=== PATIENT | female | born 1990 | race African-American/Black ===

== ENCOUNTER 2017-05-22 18:41 | Emergency (ER) | payer BC ==
[2017-05-22 18:51] VITALS: RESP 18
--- NOTE | 2017-05-22 19:16 | ED ---
General Adult HPI - General Chief complaint: Chest Pain Stated complaint: Chest,back and neck pain Time Seen by Provider: 05/22/17 18:56 Source: patient, RN notes reviewed Mode of arrival: ambulatory Limitations: no limitations - History of Present Illness Initial comments: 26-year-old female presents to the emergency department with a chief complaint of back neck and chest pain. Patient states this started about 4:00 today. She states the big deep breath seems to make it hurt worse. Since her radiated between the chest and back up to her neck. She states bending or twisting seems to make it worse. She denies any point tenderness she denies lifting or coughing or any injury to the area. Patient was concerned due to her continued discomfort so she thought that she should be evaluated. Patient denies any recent fever, chills, shortness of breath, abdominal pain, nausea vomiting, numbness or tingling, dysuria or hematuria, constipation or diarrhea, headaches or visual changes, or any other current symptoms. - Related Data Home Medications Medication Instructions Recorded Confirmed Levothyroxine Sodium [Synthroid] 25 mcg PO DAILY 07/03/15 05/22/17 Amoxicillin 500 mg PO TID 05/22/17 05/22/17 Allergies Allergy/AdvReac Type Severity Reaction Status Date / Time omeprazole [From Prilosec] Allergy Unknown Verified 05/22/17 19:09 omeprazole magnesium Allergy Unknown Verified 05/22/17 19:09 [From Prilosec] pantoprazole sodium Allergy Unknown Verified 05/22/17 19:09 [From Protonix] Review of Systems ROS Statement: Those systems with pertinent positive or pertinent negative responses have been documented in the HPI. ROS Other: All systems not noted in ROS Statement are negative. Past Medical History Past Medical History: Asthma Additional Past Medical History / Comment(s): irregular heart beat History of Any Multi-Drug Resistant Organisms: None Reported Past Surgical History: Section Past Anesthesia/Blood Transfusion Reactions: No Reported Reaction Past Psychological History: No Psychological Hx Reported Smoking Status: Never smoker Past Alcohol Use History: None Reported Past Drug Use History: None Reported - Past Family History Father Family Medical History: Hypertension Mother Family Medical History: Diabetes Mellitus, Hypertension General Exam - General Exam Comments Initial Comments: General: The patient is awake and alert, in no distress, and does not appear acutely ill. Eye: Pupils are equal, round and reactive to light, extra-ocular movements are intact; there is normal conjunctiva bilaterally. No signs of icterus. Ears, nose, mouth and throat: There are moist mucous membranes and no oral lesions. Neck: The neck is supple, there is no tenderness. Cardiovascular: There is a regular rate and rhythm. No murmur, rub or gallop is appreciated. Respiratory: Lungs are clear to auscultation, respirations are non-labored, breath sounds are equal. No wheezes, stridor, rales, or rhonchi. Gastrointestinal: Soft, non-distended, non-tender abdomen without masses or organomegaly noted. There is no rebound or guarding present. No CVA tenderness. Bowel sounds are unremarkable. Back: There is no tenderness to palpation in the midline. There is no obvious deformity. No rashes noted. Musculoskeletal: Normal ROM, no tenderness, There is no pedal edema. There is no calf tenderness or swelling. Sensation intact. Pulses equal bilaterally 2+. Neurological: CN II-XII intact, There are no obvious motor or sensory deficits. Coordination appears grossly intact. Speech is normal. Skin: Skin is warm and dry and no rashes or lesions are noted. Psychiatric: Cooperative, appropriate mood & affect, normal judgment. Limitations: no limitations Course Vital Signs 05/22/17 18:47 Temperature 97.1 F L Pulse Rate 76 Respiratory 18 Rate Blood Pressure 113/69 O2 Sat by Pulse 99 Oximetry EKG Findings - EKG Comments: EKG Findings:: normal sinus rhythm 73 bpm, normal axis, no atopy, no S-T depressions or elevations, Medical Decision Making - Medical Decision Making 18-year-old female presents for chest and back pain. This EKG is normal. Chest x-ray as well. Patient is perk negative. At this time we did discuss close follow-up with orthopedic discussed with the pain did discuss return parameters all questions. Patient stated that she understood and she is agreement plan. - Radiology Data Radiology results: report reviewed, image reviewed Disposition Clinical Impression: Costochondral chest pain Disposition: HOME SELF-CARE Condition: Stable Instructions: Costochondritis (ED) Additional Instructions: Please use medication as discussed. Please follow up with family doctor if symptoms have not improved over the next two days. Please return to the emergency room if your symptoms increase or worsen or for any other concerns. Referrals: Antonino Branch MD [Primary Care Provider] - 1-2 days Time of Disposition: 19:58
--- NOTE | 2017-05-22 19:56 | XR ---
EXAMINATION TYPE: XR chest 2V DATE OF EXAM: 05/22/2017 COMPARISON: NONE HISTORY: Cough TECHNIQUE: Frontal and lateral views of the chest are obtained. FINDINGS: Heart and mediastinum are normal. Lungs are clear. Diaphragm is normal. Bony thorax appear s normal. IMPRESSION: Normal chest
[2017-05-22] MEDS ORDERED: KETOROLAC 60 MG/2 ML VIAL IM STA (19:58)
[2017-05-22 20:36] VITALS: BP 115/71; PULSE 69; TEMP 97.9
== END 2017-05-22 20:36 | disposition home or self-care (01) ==
LOC: EC 18:41
DX: M94.0 Chondrocostal junction syndrome [Tietze] (principal); M54.9 Dorsalgia, unspecified; M54.2 Cervicalgia; Z79.899 Other long term (current) drug therapy; Z88.8 Allergy status to other drugs, medicaments and biological substances
CPT/HCPCS: 93005; 71020; 99285; 96372; J1885

== ENCOUNTER 2018-04-24 10:14 | Emergency (ER) | payer BC ==
[2018-04-24] MEDS ORDERED: SODIUM CHLORIDE 0.9% 500 ML 500 ML IV STA (10:41)
--- NOTE | 2018-04-24 10:48 | ED ---
Chest Pain HPI - General Chief Complaint: Chest Pain Stated Complaint: chest pain Source: patient, RN notes reviewed, old records reviewed Mode of arrival: ambulatory Limitations: no limitations - History of Present Illness Initial Comments: 27-year-old female patient presents to ED with 4 days of substernal chest pain. Patient states that the chest pain is waxing and waning, occurs primarily at rest. Patient states that the pain is not exacerbated by exertion. Patient states that this morning she woke up and had pain in her right shoulder as well , prompting her to come to the ER to seek treatment. Patient has a past history of chest pain, cardiac workups. Her patient she has had a negative stress test, negative echo. Patient states that she was diagnosed with an arrhythmia, but cannot confirm what it is, however she stated that there is no treatment necessary for it. Patient does complain of pleuritic chest pain with a deep breath. Patient denies recent travel, history of malignancy, history of oral contraceptive use, history of familial hypercoagulable disorder. Patient denies recent illness, abdominal pain, vomiting/diarrhea, fever chills, headache , changes in vision. Systemic: Pt denies fatigue, myalgia, fever/chills, rash. Pt denies weakness, night sweats, weight loss. Neuro: Pt denies headache, visual disturbances, syncope or pre-syncope. HEENT: Pt denies ocular discharge or irritation, otalgia, rhinorrhea, pharyngitis or notable lymphadenopathy. Cardiopulmonary: Pt denies SOB, heart palpitations, dyspnea on exertion. Abdominal/GI: Pt denies abdominal pain, n/v/d. : Pt denies dysuria, burning w/ urination, frequency/urgency. Denies new onset urinary or bowel incontinence. MSK: Pt denies myalgia, loss of strength or function in extremities. - Related Data Home Medications Medication Instructions Recorded Confirmed No Known Home Medications 04/24/18 04/24/18 Allergies Allergy/AdvReac Type Severity Reaction Status Date / Time omeprazole [From Prilosec] Allergy Unknown Verified 04/24/18 10:41 omeprazole magnesium Allergy Unknown Verified 04/24/18 10:41 [From Prilosec] pantoprazole sodium Allergy Unknown Verified 04/24/18 10:41 [From Protonix] Review of Systems ROS Statement: Those systems with pertinent positive or pertinent negative responses have been documented in the HPI. ROS Other: All systems not noted in ROS Statement are negative. Past Medical History Past Medical History: Asthma Additional Past Medical History / Comment(s): irregular heart beat History of Any Multi-Drug Resistant Organisms: None Reported Past Surgical History: Section Past Anesthesia/Blood Transfusion Reactions: No Reported Reaction Past Psychological History: No Psychological Hx Reported Smoking Status: Never smoker Past Alcohol Use History: None Reported Past Drug Use History: None Reported - Past Family History Father Family Medical History: Hypertension Mother Family Medical History: Diabetes Mellitus, Hypertension General Exam - General Exam Comments Initial Comments: Constitutional: NAD, AOX3, Pt has pleasant affect. HEENT: NC/AT, trachea midline, neck supple, no lymphadenopathy. Posterior pharynx non erythematous, without exudates. External ears appear normal, without discharge. Mucous membranes moist. Eyes PERRLA, EOM intact. There is no scleral icterus. No pallor noted. Cardiopulmonary: RRR, no murmurs, rubs or gallops, no JVD noted. Lungs CTAB in anterior and posterior dorsey. No peripheral edema. Abdominal exam: Abdomen soft and non-distended. Abdomen non-tender to palpation in all 4 quadrants. Bowel sounds active in LLQ. No hepatosplenomegaly. Neuro: CN II-XII intact. No facial droop, no focal deficit, full active range of motion and sensation in upper and lower extremities. MSK: Posterior calf non tender to palpation, homans sign negative bilaterally. Posterior tibialis, radial pulse +2 bilaterally. Limitations: no limitations Course Vital Signs 04/24/18 04/24/18 04/24/18 10:17 11:00 12:00 Temperature 97.9 F Pulse Rate 79 Respiratory 18 78 H 82 H Rate Blood Pressure 114/73 108/79 108/68 O2 Sat by Pulse 100 99 100 Oximetry Chest Pain MDM - MDM 27-year-old female patient presents to ED with 4 days of substernal chest pain. Patient states that the chest pain is waxing and waning, occurs primarily at rest. Patient states that the pain is not exacerbated by exertion. Patient states that this morning she woke up and had pain in her right shoulder as well , prompting her to come to the ER to seek treatment. Patient has a past history of chest pain, cardiac workups. Her patient she has had a negative stress test, negative echo. Patient states that she was diagnosed with an arrhythmia, but cannot confirm what it is, however she stated that there is no treatment necessary for it. Patient does complain of pleuritic chest pain with a deep breath. Patient denies recent travel, history of malignancy, history of oral contraceptive use, history of familial hypercoagulable disorder. Patient denies recent illness, abdominal pain, vomiting/diarrhea, fever chills, headache , changes in vision. Physical exam did not display acute pathology, systems exam including neuro, cardiopulmonary, HEENT, abdominal, MSK. EKG was not suspicious for acute ischemia. D-dimer is negative, PERC negative. CBC, CMP were noncompressive. HCG was negative. Chest x-ray did not display any acute cardiopulmonary process. Patient to be discharged with strict return precautions. Patient to follow up with PCP in 1-2 days. Patient to return to ED if any new signs or symptoms develop including continued chest pain, shortness of breath, headache, changes in vision, syncope or presyncope, or any other new symptoms. Case discussed with Dr. Gale. Disposition Clinical Impression: Atypical chest pain Disposition: HOME SELF-CARE Condition: Good Instructions: Chest Pain (ED) Additional Instructions: Patient to adhere to previously discussed treatment plan and will take medication(s) as directed. Patient to follow up with PCP in 1-2 days. Patient to return to ED if symptoms do not improve. Is patient prescribed a controlled substance at d/c from ED?: No Referrals: Antonino Branch MD [Primary Care Provider] - 1-2 days Time of Disposition: 13:13
[2018-04-24 11:13] LABS: Anisocytosis Slight; Basophils % (A) 0 %; Eosinophils # (A) 0.1 k/uL (0-0.7); Eosinophils % (A) 2 %; HGB 12.9 gm/dL (11.4-16.0); Lymphocytes # (A) 1.6 k/uL (1.0-4.8); Lymphocytes % (A) 39 %; MCH 26.8 pg (25.0-35.0); MCHC 33.2 g/dL (31.0-37.0); MCV 80.6 fL (80.0-100.0); Mean Platelet Volume 7.3; Microcytosis Slight; Monocytes # (A) 0.2 k/uL (0-1.0); Monocytes % (A) 5 %; Neutrophils # (A) 2.2 k/uL (1.3-7.7); Neutrophils % (A) 52 %; Platelet Count 246 k/uL (150-450); RBC 4.84 m/uL (3.80-5.40); RDW 17.4 % (11.5-15.5); WBC 4.2 k/uL (3.8-10.6)
[2018-04-24 11:26] LABS: Albumin 4.2 g/dL (3.5-5.0); Anion Gap 8 mmol/L; Blood Urea Nitrogen 16 mg/dL (7-17); Calcium 9.3 mg/dL (8.4-10.2); Carbon Dioxide 26 mmol/L (22-30); Chloride 105 mmol/L (98-107); Glucose 88 mg/dL (74-99); Sodium 139 mmol/L (137-145); Total Bilirubin 0.6 mg/dL (0.2-1.3); Total Protein 7.5 g/dL (6.3-8.2)
[2018-04-24 11:28] LABS: ALT 26 U/L (9-52); AST 28 U/L (14-36); Potassium 4.9 mmol/L (3.5-5.1)
[2018-04-24 11:29] LABS: Alkaline Phosphatase 41 U/L (38-126)
--- NOTE | 2018-04-24 12:35 | XR ---
EXAMINATION TYPE: XR chest 2V DATE OF EXAM: 04/24/2018 COMPARISON: 05/22/2017 HISTORY: Shortness of breath with history of asthma. TECHNIQUE: Frontal and lateral views of the chest are obtained. FINDINGS: There is no focal air space opacity, pleural effusion, or pneumothorax seen. The cardiac silhouette size is within normal limits. The osseous structures are intact. Pulmonary hyperinflatio n is identified however no flattening of the diaphragms is seen on the lateral view or biapical lucen cy and no sequela of radiographically of COPD are seen. IMPRESSION: No acute cardiopulmonary process.
[2018-04-24 13:14] VITALS: PULSE 78
--- NOTE | 2018-04-24 13:15 | ED ---
Medical Decision Making - Lab Data Result diagrams: 04/24/18 10:55 04/24/18 10:55 Lab Results 04/24/18 04/24/18 04/24/18 Range/Units 10:55 10:55 10:55 WBC 4.2 (3.8-10.6) k/uL RBC 4.84 (3.80-5.40) m/uL Hgb 12.9 (11.4-16.0) gm/dL Hct 39.0 (34.0-46.0) % MCV 80.6 (80.0-100.0) fL MCH 26.8 (25.0-35.0) pg MCHC 33.2 (31.0-37.0) g/dL RDW 17.4 H (11.5-15.5) % Plt Count 246 (150-450) k/uL Neutrophils % 52 % Lymphocytes % 39 % Monocytes % 5 % Eosinophils % 2 % Basophils % 0 % Neutrophils # 2.2 (1.3-7.7) k/uL Lymphocytes # 1.6 (1.0-4.8) k/uL Monocytes # 0.2 (0-1.0) k/uL Eosinophils # 0.1 (0-0.7) k/uL Basophils # 0.0 (0-0.2) k/uL Anisocytosis Slight Microcytosis Slight D-Dimer 0.22 (<0.60) mg/L FEU Sodium 139 (137-145) mmol/L Potassium 4.9 (3.5-5.1) mmol/L Chloride 105 (98-107) mmol/L Carbon Dioxide 26 (22-30) mmol/L Anion Gap 8 mmol/L BUN 16 (7-17) mg/dL Creatinine 0.78 (0.52-1.04) mg/dL Est GFR (CKD-EPI)AfAm >90 (>60 ml/min/1.73 sqM) Est GFR (CKD-EPI)NonAf >90 (>60 ml/min/1.73 sqM) Glucose 88 (74-99) mg/dL Calcium 9.3 (8.4-10.2) mg/dL Total Bilirubin 0.6 (0.2-1.3) mg/dL AST 28 (14-36) U/L ALT 26 (9-52) U/L Alkaline Phosphatase 41 (38-126) U/L Total Protein 7.5 (6.3-8.2) g/dL Albumin 4.2 (3.5-5.0) g/dL Urine HCG, Qual (Not Detectd) 04/24/18 Range/Units 11:03 WBC (3.8-10.6) k/uL RBC (3.80-5.40) m/uL Hgb (11.4-16.0) gm/dL Hct (34.0-46.0) % MCV (80.0-100.0) fL MCH (25.0-35.0) pg MCHC (31.0-37.0) g/dL RDW (11.5-15.5) % Plt Count (150-450) k/uL Neutrophils % % Lymphocytes % % Monocytes % % Eosinophils % % Basophils % % Neutrophils # (1.3-7.7) k/uL Lymphocytes # (1.0-4.8) k/uL Monocytes # (0-1.0) k/uL Eosinophils # (0-0.7) k/uL Basophils # (0-0.2) k/uL Anisocytosis Microcytosis D-Dimer (<0.60) mg/L FEU Sodium (137-145) mmol/L Potassium (3.5-5.1) mmol/L Chloride (98-107) mmol/L Carbon Dioxide (22-30) mmol/L Anion Gap mmol/L BUN (7-17) mg/dL Creatinine (0.52-1.04) mg/dL Est GFR (CKD-EPI)AfAm (>60 ml/min/1.73 sqM) Est GFR (CKD-EPI)NonAf (>60 ml/min/1.73 sqM) Glucose (74-99) mg/dL Calcium (8.4-10.2) mg/dL Total Bilirubin (0.2-1.3) mg/dL AST (14-36) U/L ALT (9-52) U/L Alkaline Phosphatase (38-126) U/L Total Protein (6.3-8.2) g/dL Albumin (3.5-5.0) g/dL Urine HCG, Qual Not Detected (Not Detectd) - EKG Data EKG Comments: Ventricular rate 60, W[place] interval 122, QRS 76, QT/QTc 412/412, normal sinus rhythm, normal EKG, no concerns for acute ischemia Disposition Clinical Impression: Atypical chest pain Disposition: HOME SELF-CARE Condition: Good Instructions: Chest Pain (ED) Additional Instructions: Patient to adhere to previously discussed treatment plan and will take medication(s) as directed. Patient to follow up with PCP in 1-2 days. Patient to return to ED if symptoms do not improve. Is patient prescribed a controlled substance at d/c from ED?: No Referrals: Antonino Branch MD [Primary Care Provider] - 1-2 days Time of Disposition: 13:15
[2018-04-24 13:37] VITALS: BP 100/63; RESP 18; TEMP 98.2
== END 2018-04-24 13:36 | disposition home or self-care (01) ==
LOC: EC 10:14
DX: R07.89 Other chest pain (principal); R07.2 Precordial pain; R07.81 Pleurodynia; M25.511 Pain in right shoulder; Z88.8 Allergy status to other drugs, medicaments and biological substances; Z82.49 Family history of ischemic heart disease and other diseases of the circulatory system
CPT/HCPCS: 36415; 71046; 80053; 81025; 85025; 85379; 87086; 93005; 96360; 99285

== ENCOUNTER → 2018-05-30 | Outpatient (CLI) | payer BC ==
--- NOTE | 2018-05-30 13:18 | ECHOS ---
STRESS ECHOCARDIOGRAM DATE OF SERVICE: 05/30/2018 INDICATIONS: Chest pain. MEDICATIONS: BASELINE HEART RATE: 67 BASELINE BLOOD PRESSURE: 113/72 MAXIMUM HEART RATE: 178 MAXIMUM BLOOD PRESSURE: 154/57 85% MPHR: 162 100% MPHR: 191 METS: 13.3 MAXIMUM STAGE REACHED: IV TOTAL EXERCISE TIME: 13 minutes 8 seconds CLINICAL INFORMATION: Baseline EKG revealed normal sinus rhythm without significant ST-T changes. Patient walked on a standard Dajuan protocol for 13 minutes 8 seconds, felt fatigued, but did not have any symptoms. Heart rate went up from 67 to 178 beats per minute and blood pressure changed from 113/72 to 154/57. EKG was unremarkable. There was some baseline artifact. By EKG criteria, this is a negative stress test with excellent exercise capacity. Baseline echo images revealed normal wall motion and wall thickening of all segments. At peak exercise, there was good augmentation of left ventricular wall motion and wall thickening of all segments suggesting that there is no evidence of stress-induced ischemia on this study. IMPRESSION: 1. Excellent exercise capacity with a negative stress test by EKG criteria. 2. Normal stress echocardiogram with excellent exercise capacity. MMODL / IJN: [id number] /
== END ==
LOC: RADNMMAIN 10:03
PROVIDERS: ATTEND Family Medicine
DX: R07.9 Chest pain, unspecified (principal)
CPT/HCPCS: 93351

== ENCOUNTER → 2018-06-27 | Outpatient (CLI) | payer BC ==
[2018-06-27 20:39] LABS: Albumin 4.3 g/dL (3.80-4.90); Albumin/Globulin Ratio 1.65 (1.60-3.17); Anion Gap 8.7 mmol/L (4.00-12.00); Carbon Dioxide 25.3 mmol/L (21.6-31.8); Globulin 2.6 g/dL (1.6-3.3); Potassium 4.3 mmol/L (3.5-5.5); Total Bilirubin 0.3 mg/dL (0.3-1.2); Total Protein 6.9 g/dL (6.2-8.2)
[2018-06-27 20:46] LABS: Thyroid Peroxidase Antibodies 29.8 U/mL (0.0-60.0)
[2018-06-27 20:47] LABS: T4, Free (Free Thyroxine) 1.1 ng/dL (0.80-1.80)
[2018-06-27 21:21] LABS: Hemoglobin A1C 5.8 % (4.0-6.0)
== END | disposition home or self-care (01) ==
LOC: LABWHC1 13:44
PROVIDERS: ATTEND Internal Medicine Endocrinology, Diabetes & Metabolism
DX: E06.3 Autoimmune thyroiditis (principal); R73.03 Prediabetes
CPT/HCPCS: 36415; 80053; 83036; 84439; 84443; 84480; 86376

== ENCOUNTER → 2018-07-12 | Outpatient (CLI) | payer BC ==
--- NOTE | 2018-07-12 14:34 | CT ---
EXAMINATION TYPE: CT brain wo con DATE OF EXAM: 07/12/2018 COMPARISON: None HISTORY: dizziness, tingling in lips and face, syncopal episode. symptoms began following chiropracti c adjustment [address] DLP: 1070.4 mGycm. Automated Exposure Control for Dose Reduction was Utilized. TECHNIQUE: CT scan of the head is performed without contrast. FINDINGS: There is no acute intracranial hemorrhage, mass effect, or midline shift identified. The ventricles and sulci are within normal limits in size. The globes are intact and the visualized sin uses are clear. Dural calcification noted. Mild prominence of the CSF space in the posterior fossa ju st below the level of the cerebellum. IMPRESSION: No acute intracranial hemorrhage or midline shift is seen. Mild prominence to the vocal music teacher ior CSF space in the posterior fossa can be associated with a small arachnoid cyst or prominent ciste rna magna. Recommend follow-up MRI.
== END | disposition home or self-care (01) ==
LOC: RADCTMAIN 13:24
PROVIDERS: ATTEND Family Medicine
DX: R55 Syncope and collapse (principal)
CPT/HCPCS: 70450

== ENCOUNTER → 2018-10-11 | Outpatient (CLI) | payer BC ==
[2018-10-11 11:12] LABS: Protein, Total 7.2 g/dL (6.2-8.2)
[2018-10-11 11:17] LABS: T4, Free (Free Thyroxine) 1.2 ng/dL (0.80-1.80)
[2018-10-12 13:27] LABS: Gamma Globulin 1.44 g/dL (0.70-1.50)
== END | disposition home or self-care (01) ==
LOC: LABWHC1 07:20
PROVIDERS: ATTEND Psychiatry & Neurology Neurology
DX: G62.9 Polyneuropathy, unspecified (principal)
CPT/HCPCS: 36415; 82607; 82747; 84165; 84439; 84443; 84481; 86334

== ENCOUNTER → 2018-12-21 | Outpatient (CLI) | payer BC ==
[2018-12-21 23:35] LABS: African American GFR (CKD) 114.7 (60.0-200.0); Albumin 4.3 g/dL (3.80-4.90); Albumin/Globulin Ratio 1.79 (1.60-3.17); Anion Gap 7.8 mmol/L (4.00-12.00); BUN/Creat Ratio 18.75 Ratio (12.00-20.00); Calcium 9.3 mg/dL (8.7-10.3); Carbon Dioxide 26.2 mmol/L (21.6-31.8); Globulin 2.4 g/dL (1.6-3.3); Non-African American GFR(CKD) 98.9 (60.0-200.0); Potassium 4.1 mmol/L (3.5-5.5); Total Bilirubin 0.4 mg/dL (0.2-1.2); Total Protein 6.7 g/dL (6.2-8.2)
[2018-12-22 01:20] LABS: Hemoglobin A1C 6.1 % (4.0-6.0)
== END | disposition home or self-care (01) ==
LOC: LABWHC1 15:10
PROVIDERS: ATTEND Internal Medicine Endocrinology, Diabetes & Metabolism
DX: E11.9 Type 2 diabetes mellitus without complications (principal)
CPT/HCPCS: 36415; 80053; 83036; 84443

== ENCOUNTER → 2019-01-24 | Outpatient (CLI) | payer BC ==
[2019-01-24 17:08] LABS: Chol/HDL Ratio 2.28; Cholesterol 121 mg/dL (0-200); Triglycerides <50.0 mg/dL (0.0-149.0); VLDL Calculation 9.98 mg/dL (5.00-40.00)
== END | disposition home or self-care (01) ==
LOC: LABWHC1 09:03
PROVIDERS: ATTEND Internal Medicine Endocrinology, Diabetes & Metabolism
DX: E11.9 Type 2 diabetes mellitus without complications (principal)
CPT/HCPCS: 36415; 80061; 82043; 82570

== ENCOUNTER 2019-03-19 20:37 | Emergency (ER) | payer BC ==
[2019-03-19] MEDS ORDERED: IBUPROFEN 600 MG TAB PO STA (21:18)
--- NOTE | 2019-03-19 21:30 | ED ---
General Adult HPI - General Chief complaint: Recheck/Abnormal Lab/Rx Stated complaint: R Leg Pain Time Seen by Provider: 03/19/19 21:01 Source: patient, RN notes reviewed Mode of arrival: ambulatory Limitations: no limitations - History of Present Illness Initial comments: 28-year-old female presented from chief complaint of right leg pain. Patient states has been bothersome or last few days. Patient was seen at urgent care sent here for ultrasound. Patient states that she has no history of DVTs. She denies any chest pain or shortness of breath has taken any control any risk factors for DVTs. Patient states that there is no swelling. She states the pain is constant does not matter if she is moving or not. She does get some radiating pain occasionally. - Related Data Previous Rx's Medication Instructions Recorded Ibuprofen [Motrin] 600 mg PO Q8HR PRN #30 tab 03/19/19 Allergies Allergy/AdvReac Type Severity Reaction Status Date / Time omeprazole [From Prilosec] Allergy Diarrhea Verified 03/19/19 21:48 omeprazole magnesium Allergy Diarrhea Verified 03/19/19 21:48 [From Prilosec] pantoprazole sodium Allergy Diarrhea Verified 03/19/19 21:48 [From Protonix] Review of Systems ROS Statement: Those systems with pertinent positive or pertinent negative responses have been documented in the HPI. ROS Other: All systems not noted in ROS Statement are negative. Past Medical History Past Medical History: Asthma Additional Past Medical History / Comment(s): irregular heart beat History of Any Multi-Drug Resistant Organisms: None Reported Past Surgical History: Section Past Anesthesia/Blood Transfusion Reactions: No Reported Reaction Past Psychological History: No Psychological Hx Reported Smoking Status: Never smoker Past Alcohol Use History: None Reported Past Drug Use History: None Reported - Past Family History Father Family Medical History: Hypertension Mother Family Medical History: Diabetes Mellitus, Hypertension General Exam Limitations: no limitations General appearance: alert, in no apparent distress Head exam: Present: atraumatic, normocephalic, normal inspection Respiratory exam: Present: normal lung sounds bilaterally. Absent: respiratory distress, wheezes, rales, rhonchi, stridor Cardiovascular Exam: Present: regular rate, normal rhythm, normal heart sounds. Absent: systolic murmur, diastolic murmur, rubs, gallop, clicks Extremities exam: Present: other (Right leg there is no swelling, pulses are equal bilaterally neurovascular intact there is no tenderness with palpation. Full range of motion full-strength) Course Vital Signs 03/19/19 20:50 Temperature 98.0 F Pulse Rate 70 Respiratory 18 Rate Blood Pressure 115/72 O2 Sat by Pulse 98 Oximetry Medical Decision Making - Medical Decision Making 28-year-old female presented for right calf pain. Ultrasound is negative for acute DVT. Patient symptoms may related to radicular pain versus strain. Patient was started on anti-inflammatories. Disposition Clinical Impression: Right calf pain Disposition: HOME SELF-CARE Condition: Stable Instructions (If sedation given, give patient instructions): Leg Cramps (ED) Additional Instructions: Please return to the Emergency Department if symptoms worsen or any other concerns. Prescriptions: Ibuprofen [Motrin] 600 mg PO Q8HR PRN #30 tab PRN Reason: Pain Is patient prescribed a controlled substance at d/c from ED?: No Referrals: Antonino Branch MD [Primary Care Provider] - 1-2 days Time of Disposition: 22:08
--- NOTE | 2019-03-19 21:53 | US ---
EXAMINATION TYPE: US venous doppler duplex LE RT DATE OF EXAM: 03/19/2019 9:48 PM COMPARISON: NONE CLINICAL HISTORY: pain. Right leg pain x 4 days. No HX of DVT. Patient does not take blood thinners. SIDE PERFORMED: Right TECHNIQUE: The lower extremity deep venous system is examined utilizing real time linear array sonog robe with graded compression, doppler sonography and color-flow sonography. VESSELS IMAGED: External Iliac Vein (EIV) Common Femoral Vein Deep Femoral Vein Greater Saphenous Vein * Femoral Vein Popliteal Vein Small Saphenous Vein * Proximal Calf Veins (* superficial vessels) Right Leg: No evidence of DVT in veins imaged from prox calf veins to EIV. IMPRESSION: No evidence of deep venous thrombosis in the right leg.
[2019-03-19 22:32] VITALS: BP 107/71; PULSE 80; RESP 17; TEMP 97.6
== END 2019-03-19 22:31 | disposition home or self-care (01) ==
LOC: EC 20:37
DX: M79.661 Pain in right lower leg (principal); Z88.8 Allergy status to other drugs, medicaments and biological substances
CPT/HCPCS: 99283

== ENCOUNTER → 2019-04-12 | Outpatient (CLI) | payer BC ==
[2019-04-12 20:49] LABS: ALT 20 U/L (8-44); AST 23 U/L (13-35); African American GFR (CKD) 99.4 (60.0-200.0); Albumin/Globulin Ratio 1.79 (1.60-3.17); Alkaline Phosphatase 55 U/L (41-126); BUN/Creat Ratio 17.78 Ratio (12.00-20.00); Calcium 9.3 mg/dL (8.7-10.3); Carbon Dioxide 25.9 mmol/L (21.6-31.8); Chloride 105 mmol/L (96-109); Chol/HDL Ratio 2.24; Cholesterol 114 mg/dL (0-200); Globulin 2.4 g/dL (1.6-3.3); Glucose 82 mg/dL (70-110); Non-African American GFR(CKD) 85.8 (60.0-200.0); Potassium 4.3 mmol/L (3.5-5.5); Sodium 141 mmol/L (135-145); Total Bilirubin 0.8 mg/dL (0.3-1.2); Total Protein 6.7 g/dL (6.2-8.2); Triglycerides <50.0 mg/dL (0.0-149.0)
[2019-04-12 21:15] LABS: Hemoglobin A1C 5.8 % (4.0-6.0)
== END ==
LOC: LABWHC1 11:15
PROVIDERS: ATTEND Internal Medicine Endocrinology, Diabetes & Metabolism
DX: E11.9 Type 2 diabetes mellitus without complications (principal)
CPT/HCPCS: 36415; 80053; 80061; 82043; 82570; 83036; 84443

== ENCOUNTER → 2019-06-27 | Outpatient (CLI) | payer BC, OTHER ==
[2019-06-27 11:34] LABS: African American GFR (CKD) 99.4 (60.0-200.0); Albumin 4.3 g/dL (3.80-4.90); Albumin/Globulin Ratio 1.79 (1.60-3.17); Anion Gap 6.3 mmol/L (4.00-12.00); BUN/Creat Ratio 17.78 Ratio (12.00-20.00); Calcium 9.5 mg/dL (8.7-10.3); Carbon Dioxide 27.7 mmol/L (21.6-31.8); Globulin 2.4 g/dL (1.6-3.3); Non-African American GFR(CKD) 85.8 (60.0-200.0); Potassium 4.8 mmol/L (3.5-5.5); Total Bilirubin 0.4 mg/dL (0.2-1.2); Total Protein 6.7 g/dL (6.2-8.2)
[2019-06-27 13:19] LABS: Hemoglobin A1C 5.7 % (4.0-6.0)
[2019-06-28 13:27] LABS: Cashew IgE <0.10 kU/L (<0.10); Cashew IgE Class CLASS 0
[2019-06-28 13:28] LABS: Apple IgE Class CLASS 0; Beef IgE <0.10 kU/L (<0.10); Beef IgE Class CLASS 0; Gluten IgE Class CLASS 0; Oat IgE Class CLASS 0; Pork IgE Class CLASS 0; Yeast Bakers/Brew IgE <0.10 kU/L (<0.10); Yeast Bakers/Brew IgE Class CLASS 0
[2019-06-28 13:29] LABS: Chicken IgE Class CLASS 0; Chocolate IgE Class CLASS 0
[2019-06-28 13:30] LABS: Avocado Class CLASS 0; Banana IgE Class CLASS 0; Coffee IgE <0.10 kU/L (<0.10); Coffee IgE Class CLASS 0; Cow's Milk IgE Class CLASS 0; Egg White IgE <0.10 kU/L (<0.10); Hazelnut IgE <0.10 kU/L (<0.10); Hazelnut IgE Class CLASS 0; Kiwi IgE <0.10 kU/L (<0.10); Kiwi IgE Class CLASS 0; Latex IgE Class CLASS 0; Peanut IgE <0.10 kU/L (<0.10); Potato IgE <0.10 kU/L (<0.10); Potato IgE Class CLASS 0; Soybean IgE <0.10 kU/L (<0.10); Tea IgE <0.10 kU/L (<0.10); Tea IgE Class CLASS 0
== END | disposition home or self-care (01) ==
LOC: LABWHC1 06:32
PROVIDERS: ATTEND Internal Medicine Endocrinology, Diabetes & Metabolism
DX: E11.9 Type 2 diabetes mellitus without complications (principal); L50.0 Allergic urticaria
CPT/HCPCS: 36415; 80053; 83036; 84443; 86003

== ENCOUNTER → 2019-10-04 | Outpatient (CLI) | payer BC, OTHER | END | disposition home or self-care (01) | LOC: LABWHC1 09:14 | PROVIDERS: ATTEND Internal Medicine Endocrinology, Diabetes & Metabolism | DX: E03.8 Other specified hypothyroidism (principal) | CPT/HCPCS: 36415; 84443 ==

== ENCOUNTER → 2020-01-01 | Outpatient (CLI) | payer OTHER, BC | END | disposition home or self-care (01) | LOC: RADECHMAIN 13:39 | PROVIDERS: ATTEND Family Medicine | DX: R00.2 Palpitations (principal) | CPT/HCPCS: 93225; 93226 ==

== ENCOUNTER → 2020-01-01 | Outpatient (CLI) | payer OTHER, BC ==
[2020-01-01 16:12] LABS: ALT 14 U/L (8-44); AST 20 U/L (13-35); African American GFR (CKD) 86.9 (60.0-200.0); Albumin/Globulin Ratio 1.69 (1.60-3.17); Alkaline Phosphatase 52 U/L (41-126); Calcium 9.5 mg/dL (8.7-10.3); Carbon Dioxide 28.2 mmol/L (21.6-31.8); Chloride 105 mmol/L (96-109); Chol/HDL Ratio 2.26; Cholesterol 122 mg/dL (0-200); Globulin 2.6 g/dL (1.6-3.3); Glucose 92 mg/dL (70-110); Sodium 140 mmol/L (135-145); Total Bilirubin 0.7 mg/dL (0.2-1.2); Triglycerides <50.0 mg/dL (0.0-149.0)
[2020-01-01 16:36] LABS: Hemoglobin A1C 5.8 % (4.0-6.0)
[2020-01-01 21:40] LABS: Urine Creatinine 276.2 mg/dL
== END | disposition home or self-care (01) ==
LOC: LABWHC1 11:03
PROVIDERS: ATTEND Internal Medicine Endocrinology, Diabetes & Metabolism
DX: E11.9 Type 2 diabetes mellitus without complications (principal)
CPT/HCPCS: 36415; 80053; 80061; 82043; 82570; 83036; 84443

== ENCOUNTER → 2020-02-07 | Outpatient (CLI) | payer OTHER, BC ==
[2020-02-07 13:56] LABS: Anisocytosis Slight; HCT 39.4 % (34.0-46.0); HGB 12.2 gm/dL (11.4-16.0); Hypochromasia Slight; MCH 25.5 pg (25.0-35.0); MCHC 30.9 g/dL (31.0-37.0); MCV 82.7 fL (80.0-100.0); Mean Platelet Volume 7.2; Platelet Count 263 k/uL (150-450); RBC 4.76 m/uL (3.80-5.40); RDW 16.2 % (11.5-15.5); WBC 3.6 k/uL (3.8-10.6)
[2020-02-07 19:22] LABS: ALT 14 U/L (8-44); AST 19 U/L (13-35); African American GFR (CKD) 98.7 (60.0-200.0); Albumin/Globulin Ratio 1.73 (1.60-3.17); Alkaline Phosphatase 53 U/L (41-126); BUN/Creat Ratio 16.67 Ratio (12.00-20.00); Calcium 9.3 mg/dL (8.7-10.3); Carbon Dioxide 26.4 mmol/L (21.6-31.8); Chloride 107 mmol/L (96-109); Chol/HDL Ratio 2.54; Cholesterol 127 mg/dL (0-200); Globulin 2.6 g/dL (1.6-3.3); Glucose 91 mg/dL (70-110); Non-African American GFR(CKD) 85.2 (60.0-200.0); Potassium 4.3 mmol/L (3.5-5.5); Sodium 139 mmol/L (135-145); Total Bilirubin 0.7 mg/dL (0.3-1.2); Total Protein 7.1 g/dL (6.2-8.2); Triglycerides <50.0 mg/dL (0.0-149.0)
[2020-02-07 19:29] LABS: DHEA Sulfate 42.6 ug/dL (26.0-430.0)
[2020-02-07 19:31] LABS: Insulin Level 4.9 mIU/mL (3.0-25.0); Luteinizing Hormone 5.3 mIU/mL
[2020-02-07 19:32] LABS: Follicle Stimulating Hormone 6.4 mIU/mL
[2020-02-07 20:08] LABS: HIV 2 AB Non-Reactive (Non-Reactive); HIV AB P24 Non-Reactive (Non-Reactive); HIV P24 AG Non-Reactive (Non-Reactive)
[2020-02-07 21:39] LABS: Hepatitis B Surface Antigen Non-Reactive (Non-Reactive); Hepatitis C IgG Antibody Non-Reactive (Non-Reactive)
[2020-02-08 22:41] LABS: Anti-Mullerian Hormone 14.15 ng/mL (0.36 - 10.07)
== END | disposition home or self-care (01) ==
LOC: LABWHC1 12:52
PROVIDERS: ATTEND Obstetrics & Gynecology Reproductive Endocrinology
DX: Z01.84 Encounter for antibody response examination (principal); N97.9 Female infertility, unspecified; E03.9 Hypothyroidism, unspecified; E28.9 Ovarian dysfunction, unspecified; Z13.0 Encounter for screening for diseases of the blood and blood-forming organs and certain disorders involving the immune mechanism; Z01.83 Encounter for blood typing; Z11.3 Encounter for screening for infections with a predominantly sexual mode of transmission; Z11.4 Encounter for screening for human immunodeficiency virus [HIV]; Z13.21 Encounter for screening for nutritional disorder; Z13.220 Encounter for screening for lipoid disorders; Z13.1 Encounter for screening for diabetes mellitus; Z11.59 Encounter for screening for other viral diseases
CPT/HCPCS: 36415; 80053; 80061; 82306; 82397; 82627; 83001; 83002; 83036; 83498; 83525; 84146; 84403; 84443; 85027; 86762; 86780; 86787; 86803; 86850; 86900; 86901; 87340; 87390

== ENCOUNTER 2020-03-14 22:59 | Emergency (ER) | payer BC, OTHER ==
[2020-03-14 23:06] VITALS: BP 123/83; PULSE 91; RESP 20; TEMP 99
[2020-03-14] MEDS ORDERED: LIDOCAINE 5% PATCH TOPICAL STA (23:19)
[2020-03-14] MEDS ORDERED: dexAMETHasone 4 MG TAB PO STA (23:19)
[2020-03-14] MEDS ORDERED: valACYclovir 500 MG TAB PO STA (23:19)
--- NOTE | 2020-03-14 23:27 | ED ---
Skin/Abscess/FB HPI - General Chief complaint: Skin/Abscess/Foreign Body Stated complaint: Rash on stomach and back Time Seen by Provider: 03/14/20 23:12 Source: patient, RN notes reviewed, old records reviewed Mode of arrival: ambulatory Limitations: no limitations - History of Present Illness Initial comments: This is a 29-year-old female DF for evaluation of rash patient has been treated on steroids for a stress with no help rashes more painful and it is itchy left side of abdomen left anterior abdomen around the left side of her back. All left-sided. Patient does admit to significant pain with these symptoms no real itching, symptoms are persistent does have increasing stress as of late MD complaint: rash -: days(s) Severity: moderate Severity scale (1-10): 4 Quality: burning, sharp Consistency: constant Improves with: none Worsens with: none Context: other (none) Associated symptoms: denies other symptoms Treatments Prior to Arrival: corticosteroid - Related Data Home Medications Medication Instructions Recorded Confirmed Levothyroxine Sodium [Synthroid] 25 mcg PO DAILY 02/11/20 02/13/20 Previous Rx's Medication Instructions Recorded RX: predniSONE 50 mg PO DAILY #7 tab 03/14/20 RX: valACYclovir HCL [Valtrex] 1,000 mg PO Q8HR #21 tab 03/14/20 Allergies Allergy/AdvReac Type Severity Reaction Status Date / Time omeprazole [From Prilosec] Allergy Diarrhea Verified 03/14/20 23:05 omeprazole magnesium Allergy Diarrhea Verified 03/14/20 23:05 [From Prilosec] pantoprazole sodium Allergy Diarrhea Verified 03/14/20 23:05 [From Protonix] Review of Systems ROS Statement: Those systems with pertinent positive or pertinent negative responses have been documented in the HPI. ROS Other: All systems not noted in ROS Statement are negative. Past Medical History Past Medical History: Asthma, Thyroid Disorder Additional Past Medical History / Comment(s): irregular heart beat-recent stress & echo w/[facility]-no results yet, recent TMJ issues right side of jaw History of Any Multi-Drug Resistant Organisms: None Reported Past Surgical History: Section Additional Past Surgical History / Comment(s): tongue surgery Past Anesthesia/Blood Transfusion Reactions: No Reported Reaction Past Psychological History: No Psychological Hx Reported Smoking Status: Never smoker Past Alcohol Use History: None Reported Past Drug Use History: None Reported - Past Family History Father Family Medical History: Hypertension Mother Family Medical History: Diabetes Mellitus, Hypertension General Exam Limitations: no limitations General appearance: alert, in no apparent distress Head exam: Present: atraumatic, normocephalic, normal inspection Eye exam: Present: normal appearance, PERRL, EOMI. Absent: scleral icterus, conjunctival injection, periorbital swelling ENT exam: Present: normal exam, mucous membranes moist Neck exam: Present: normal inspection. Absent: tenderness, meningismus, lymphadenopathy Respiratory exam: Present: normal lung sounds bilaterally. Absent: respiratory distress, wheezes, rales, rhonchi, stridor Cardiovascular Exam: Present: regular rate, normal rhythm, normal heart sounds. Absent: systolic murmur, diastolic murmur, rubs, gallop, clicks GI/Abdominal exam: Present: soft, normal bowel sounds. Absent: distended, tenderness, guarding, rebound, rigid Extremities exam: Present: normal inspection, full ROM, normal capillary refill. Absent: tenderness, pedal edema, joint swelling, calf tenderness Back exam: Present: normal inspection Neurological exam: Present: alert, oriented X3, CN II-XII intact Psychiatric exam: Present: normal affect, normal mood Skin exam: Present: warm, dry, intact, normal color. Absent: rash Expanded Type of lesion: Present: rash, other (Left t6 herpes zoster) Course Vital Signs 03/14/20 23:02 Temperature 99.0 F Pulse Rate 91 Respiratory 20 Rate Blood Pressure 123/83 O2 Sat by Pulse 99 Oximetry - Reevaluation(s) Reevaluation #1: 03/14/20 23:25 Medical records reviewed Reevaluation #2: 03/14/20 23:25 Patient informed results findings and questions answered Medical Decision Making - Medical Decision Making 1 female DEL with left-sided zoster anterior abdomen posterior back left sided about T6-T7. Patient appropriately can be discharged home Disposition Clinical Impression: Herpes zoster Disposition: HOME SELF-CARE Condition: Good Instructions (If sedation given, give patient instructions): Shingles (ED) Prescriptions: RX: predniSONE 50 mg PO DAILY #7 tab RX: valACYclovir HCL [Valtrex] 1,000 mg PO Q8HR #21 tab Is patient prescribed a controlled substance at d/c from ED?: No Referrals: Antonino Branch MD [Primary Care Provider] - 1-2 days
== END 2020-03-14 23:47 | disposition home or self-care (01) ==
LOC: EC 22:59
DX: B02.9 Zoster without complications (principal); E07.9 Disorder of thyroid, unspecified; Z79.890 Hormone replacement therapy; Z88.8 Allergy status to other drugs, medicaments and biological substances
CPT/HCPCS: 99283; J8540

== ENCOUNTER 2020-03-23 06:31 | Emergency (ER) | payer BC ==
[2020-03-23] MEDS ORDERED: KETOROLAC 15 MG/ML 1 ML VIAL IVP STA (06:58)
--- NOTE | 2020-03-23 07:16 | ED ---
General Adult HPI - General Chief complaint: Extremity Problem,Nontraumatic Stated complaint: joint pain Time Seen by Provider: 03/23/20 06:49 Source: patient, RN notes reviewed Mode of arrival: wheelchair Limitations: no limitations - History of Present Illness Initial comments: This a 29-year-old female presents emergency Department chief complaint of severe joint pain. Patient states that it started shortly after her visit 1 week ago here. Patient states that she was diagnosed with shingles placed on Valtrex and prednisone. Patient states that the pain has been worsening she did follow-up with her PCP who told her that this was from the Valtrex. Patient was not discharged with any pain medication. Patient states that she is not taking any recent Tylenol Motrin. Denies any fevers or chills. Denies any neck pain or stiffness no headache or dizziness. Patient has no history of rheumatological diseases - Related Data Home Medications Medication Instructions Recorded Confirmed Levothyroxine Sodium [Synthroid] 25 mcg PO DAILY 02/11/20 02/13/20 Previous Rx's Medication Instructions Recorded predniSONE 50 mg PO DAILY #7 tab 03/14/20 valACYclovir HCL [Valtrex] 1,000 mg PO Q8HR #21 tab 03/14/20 Ibuprofen [Motrin] 600 mg PO Q6HR PRN #20 tab 03/23/20 Allergies Allergy/AdvReac Type Severity Reaction Status Date / Time omeprazole [From Prilosec] Allergy Diarrhea Verified 03/23/20 06:44 omeprazole magnesium Allergy Diarrhea Verified 03/23/20 06:44 [From Prilosec] pantoprazole sodium Allergy Diarrhea Verified 03/23/20 06:44 [From Protonix] Review of Systems ROS Statement: Those systems with pertinent positive or pertinent negative responses have been documented in the HPI. ROS Other: All systems not noted in ROS Statement are negative. Past Medical History Past Medical History: Asthma, Thyroid Disorder Additional Past Medical History / Comment(s): irregular heart beat-recent stress & echo w/[facility]-no results yet, recent TMJ issues right side of jaw History of Any Multi-Drug Resistant Organisms: None Reported Past Surgical History: Section Additional Past Surgical History / Comment(s): tongue surgery Past Anesthesia/Blood Transfusion Reactions: No Reported Reaction Past Psychological History: No Psychological Hx Reported Smoking Status: Never smoker Past Alcohol Use History: None Reported Past Drug Use History: None Reported - Past Family History Father Family Medical History: Hypertension Mother Family Medical History: Diabetes Mellitus, Hypertension General Exam Limitations: no limitations General appearance: alert, in no apparent distress Head exam: Present: atraumatic, normocephalic, normal inspection Eye exam: Present: normal appearance, PERRL, EOMI. Absent: scleral icterus, conjunctival injection, periorbital swelling ENT exam: Present: normal exam, mucous membranes moist Neck exam: Present: normal inspection, full ROM. Absent: tenderness, meningismus, lymphadenopathy Respiratory exam: Present: normal lung sounds bilaterally. Absent: respiratory distress, wheezes, rales, rhonchi, stridor Cardiovascular Exam: Present: regular rate, normal rhythm, normal heart sounds. Absent: systolic murmur, diastolic murmur, rubs, gallop, clicks GI/Abdominal exam: Present: soft, normal bowel sounds. Absent: distended, tenderness, guarding, rebound, rigid Extremities exam: Present: normal inspection, full ROM, other (Patient reports pain with range of motion of large joints). Absent: tenderness, joint swelling Neurological exam: Present: alert, oriented X3, CN II-XII intact Skin exam: Present: warm, dry, intact, normal color. Absent: rash Course Vital Signs 03/23/20 06:39 Temperature 97.9 F Pulse Rate 97 Respiratory 17 Rate Blood Pressure 103/55 O2 Sat by Pulse 99 Oximetry Medical Decision Making - Medical Decision Making 29-year-old female presented for joint pain. This seems related to her Valtrex. Patient was greatly improved after Toradol. CBC and CMP reviewed no acute abnormality. Patient will be discharged with ibuprofen and follow-up with PCP tomorrow morning and return for any worsening change in symptoms. - Lab Data Result diagrams: 03/23/20 07:02 03/23/20 07:02 Lab Results 03/23/20 03/23/20 Range/Units 07:02 07:02 WBC 9.4 (3.8-10.6) k/uL RBC 4.69 (3.80-5.40) m/uL Hgb 12.5 (11.4-16.0) gm/dL Hct 40.3 (34.0-46.0) % MCV 85.9 (80.0-100.0) fL MCH 26.8 (25.0-35.0) pg MCHC 31.2 (31.0-37.0) g/dL RDW 16.7 H (11.5-15.5) % Plt Count 324 (150-450) k/uL Neutrophils % 46 % Lymphocytes % 46 % Monocytes % 5 % Eosinophils % 1 % Basophils % 1 % Neutrophils # 4.3 (1.3-7.7) k/uL Lymphocytes # 4.3 (1.0-4.8) k/uL Monocytes # 0.5 (0-1.0) k/uL Eosinophils # 0.1 (0-0.7) k/uL Basophils # 0.1 (0-0.2) k/uL Anisocytosis Slight Sodium 137 (137-145) mmol/L Potassium 4.1 (3.5-5.1) mmol/L Chloride 100 (98-107) mmol/L Carbon Dioxide 28 (22-30) mmol/L Anion Gap 9 mmol/L BUN 14 (7-17) mg/dL Creatinine 0.80 (0.52-1.04) mg/dL Est GFR (CKD-EPI)AfAm >90 (>60 ml/min/1.73 sqM) Est GFR (CKD-EPI)NonAf >90 (>60 ml/min/1.73 sqM) Glucose 87 (74-99) mg/dL Calcium 9.2 (8.4-10.2) mg/dL Total Bilirubin 0.4 (0.2-1.3) mg/dL AST 20 (14-36) U/L ALT 21 (4-34) U/L Alkaline Phosphatase 40 (38-126) U/L Total Protein 6.9 (6.3-8.2) g/dL Albumin 4.0 (3.5-5.0) g/dL Disposition Clinical Impression: Arthralgia Disposition: HOME SELF-CARE Condition: Stable Instructions (If sedation given, give patient instructions): Arthralgia (ED) Additional Instructions: Please return to the Emergency Department if symptoms worsen or any other concerns. Prescriptions: Ibuprofen [Motrin] 600 mg PO Q6HR PRN #20 tab PRN Reason: Pain Is patient prescribed a controlled substance at d/c from ED?: No Referrals: Antonino Branch MD [Primary Care Provider] - 1-2 days Time of Disposition: 08:37
[2020-03-23 07:19] LABS: Anisocytosis Slight; Basophils # (A) 0.1 k/uL (0-0.2); Basophils % (A) 1 %; Eosinophils # (A) 0.1 k/uL (0-0.7); Eosinophils % (A) 1 %; HCT 40.3 % (34.0-46.0); HGB 12.5 gm/dL (11.4-16.0); Lymphocytes # (A) 4.3 k/uL (1.0-4.8); Lymphocytes % (A) 46 %; MCH 26.8 pg (25.0-35.0); MCHC 31.2 g/dL (31.0-37.0); MCV 85.9 fL (80.0-100.0); Mean Platelet Volume 6.8; Monocytes # (A) 0.5 k/uL (0-1.0); Monocytes % (A) 5 %; Neutrophils # (A) 4.3 k/uL (1.3-7.7); Neutrophils % (A) 46 %; Platelet Count 324 k/uL (150-450); RBC 4.69 m/uL (3.80-5.40); RDW 16.7 % (11.5-15.5); WBC 9.4 k/uL (3.8-10.6)
[2020-03-23 07:26] LABS: ALT 21 U/L (4-34); AST 20 U/L (14-36); African American GFR (CKD) >90 (>60 ml/min/1.73 sqM); Alkaline Phosphatase 40 U/L (38-126); Anion Gap 9 mmol/L; Blood Urea Nitrogen 14 mg/dL (7-17); Calcium 9.2 mg/dL (8.4-10.2); Carbon Dioxide 28 mmol/L (22-30); Chloride 100 mmol/L (98-107); Glucose 87 mg/dL (74-99); Non-African American GFR(CKD) >90 (>60 ml/min/1.73 sqM); Potassium 4.1 mmol/L (3.5-5.1); Sodium 137 mmol/L (137-145); Total Bilirubin 0.4 mg/dL (0.2-1.3); Total Protein 6.9 g/dL (6.3-8.2)
[2020-03-23 07:41] LABS: C Reactive Protein <5.0 mg/L (<10.0)
[2020-03-23] MEDS ORDERED: ACET/COD 300 MG/30 MG STARTER PACK 6 TAB BTL PO STA (08:37)
[2020-03-23 08:49] VITALS: BP 97/55; PULSE 78; RESP 18; TEMP 98.6
== END 2020-03-23 08:49 | disposition home or self-care (01) ==
LOC: EC 06:31
DX: M25.50 Pain in unspecified joint (principal); E07.9 Disorder of thyroid, unspecified; Z79.890 Hormone replacement therapy; Z88.8 Allergy status to other drugs, medicaments and biological substances
CPT/HCPCS: 36415; 80053; 85025; 86140; 99284; 96374; J1885

== ENCOUNTER → 2020-04-23 | Outpatient (CLI) | payer BC | END | disposition home or self-care (01) | LOC: LABWHC1 13:10 | PROVIDERS: ATTEND Obstetrics & Gynecology Reproductive Endocrinology | DX: Z13.21 Encounter for screening for nutritional disorder (principal) | CPT/HCPCS: 36415; 82306 ==

== ENCOUNTER → 2020-06-06 | Outpatient (CLI) | payer BC ==
[2020-06-06 23:44] LABS: Chol/HDL Ratio 2.57; Cholesterol 131 mg/dL (0-200); Triglycerides <50.0 mg/dL (0.0-149.0)
[2020-06-07 01:13] LABS: Hemoglobin A1C 5.8 % (4.0-6.0)
== END | disposition home or self-care (01) ==
LOC: LABWHC1 16:21
PROVIDERS: ATTEND Internal Medicine Endocrinology, Diabetes & Metabolism
DX: E11.9 Type 2 diabetes mellitus without complications (principal); E03.8 Other specified hypothyroidism
CPT/HCPCS: 36415; 80061; 83036; 84443

== ENCOUNTER 2020-08-30 20:05 | Emergency (ER) | payer BC, OTHER ==
[2020-08-30] MEDS ORDERED: KETOROLAC 15 MG/ML 1 ML VIAL IM STA (20:53)
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
--- NOTE | 2020-08-30 22:18 | XR ---
EXAMINATION TYPE: XR hand limited RT DATE OF EXAM: 08/30/2020 CLINICAL HISTORY: Pain status post SENIOR CARE. TECHNIQUE: Frontal, lateral and oblique images of the right hand are obtained. COMPARISON: None. FINDINGS: There is no acute fracture/dislocation evident in the right hand. The joint spaces in the right hand appear within normal limits. The overlying soft tissue appears unremarkable. IMPRESSION: There is no acute fracture or dislocation in the right hand.
--- NOTE | 2020-08-30 22:18 | XR ---
EXAMINATION TYPE: XR wrist complete RT DATE OF EXAM: 08/30/2020 COMPARISON: NONE HISTORY: Pain TECHNIQUE: 4 views FINDINGS: Metacarpals are partly visualized and appear normal. Carpal bones are intact. Scaphoid appe ars normal. Distal radius and ulna appear intact. IMPRESSION: Negative right wrist exam.
--- NOTE | 2020-08-30 22:20 | XR ---
EXAMINATION TYPE: XR Hip Complete LT DATE OF EXAM: 08/30/2020 COMPARISON: NONE HISTORY: Pain TECHNIQUE: 2 views FINDINGS: I see no fracture nor dislocation. Joint spaces are normal. The joint space is normal. Ther e is no hip dysplasia. Sacroiliac joint is intact. IMPRESSION: Negative left hip exam.
[2020-08-30 23:05] VITALS: BP 125/70; PULSE 91; RESP 16; TEMP 98.1
== END 2020-08-30 23:04 | disposition home or self-care (01) ==
LOC: EC 20:05
DX: S66.911A Strain of unspecified muscle, fascia and tendon at wrist and hand level, right hand, initial encounter (principal); M25.552 Pain in left hip; E07.9 Disorder of thyroid, unspecified; Z79.890 Hormone replacement therapy; Z88.8 Allergy status to other drugs, medicaments and biological substances; V28.4XXA Motorcycle driver injured in noncollision transport accident in traffic accident, initial encounter; Y92.410 Unspecified street and highway as the place of occurrence of the external cause
CPT/HCPCS: 73502; 73110; 73120; 99284; 96372; J1885

== ENCOUNTER 2020-11-01 16:12 | Emergency (ER) | payer BC ==
[2020-11-01 16:16] VITALS: BP 112/68; PULSE 90; RESP 18; TEMP 98.3
[2020-11-01] MEDS ORDERED: SODIUM CHLORIDE 0.9% 1,000 ML IV ONE (16:25)
[2020-11-01 16:44] LABS: Anisocytosis Slight; Basophils % (A) 0 %; Eosinophils # (A) 0.2 k/uL (0-0.7); Eosinophils % (A) 2 %; HCT 37.2 % (34.0-46.0); HGB 11.9 gm/dL (11.4-16.0); Lymphocytes # (A) 1.5 k/uL (1.0-4.8); Lymphocytes % (A) 16 %; MCH 25.6 pg (25.0-35.0); MCV 79.8 fL (80.0-100.0); Mean Platelet Volume 6.7; Microcytosis Slight; Monocytes # (A) 0.5 k/uL (0-1.0); Monocytes % (A) 5 %; Neutrophils % (A) 75 %; Platelet Count 315 k/uL (150-450); RBC 4.66 m/uL (3.80-5.40); RDW 17.2 % (11.5-15.5); WBC 9.3 k/uL (3.8-10.6)
[2020-11-01 16:45] LABS: Appearance,Urine Clear (Clear); Bilirubin,Urine Negative (Negative); Blood,Urine Large (Negative); Color,Urine Yellow; Glucose,Urine (UA) Negative (Negative); Ketones,Urine Negative (Negative); Leukocyte Esterase,Urine Trace (Negative); Mucus,Urine Rare /hpf; Nitrite,Urine Negative (Negative); PH, Urine 5.5 (5.0-8.0); Protein,Urine Trace (Negative); RBC,Urine 2 /hpf (0-5); Specific Gravity,Urine 1.034 (1.001-1.035); Squamous Epithelial Cell,Urine 2 /hpf (0-4); Urobilinogen,Urine <2.0 mg/dL (<2.0); WBC,Urine 4 /hpf (0-5)
--- NOTE | 2020-11-01 16:49 | ED ---
General Adult HPI - General Chief complaint: Vaginal Bleeding Stated complaint: Poss Miscarriage Time Seen by Provider: 11/01/20 16:17 Source: patient, RN notes reviewed Mode of arrival: ambulatory Limitations: no limitations - History of Present Illness Initial comments: 30-year-old female currently 6 weeks presents to the emergency room for a chief complaint of spotting. Patient reports she just had spotting starting today. She denies any abdominal pain. Patient reports that she is concerned she could be miscarrying. Patient follows with Dr. Gomez but does see a fertility specialist and had IUI. She did have an ultrasound showing an intrauterine 2 days ago.Patient has no other complaints at this time including shortness of breath, chest pain, abdominal pain, nausea or vomiting, headache, or visual changes. - Related Data Home Medications Medication Instructions Recorded Confirmed Estradiol 6 mg PO HS 11/01/20 11/01/20 Levothyroxine Sodium [Synthroid] 50 mcg PO DAILY 11/01/20 11/01/20 Pnv No.95/Ferrous Fum/Folic AC 1 tab PO HS 11/01/20 11/01/20 [ Multivitamin Tablet] metFORMIN HCL [metFORMIN HCL ER] 500 mg PO HS 11/01/20 11/01/20 Allergies Allergy/AdvReac Type Severity Reaction Status Date / Time omeprazole [From Prilosec] Allergy Diarrhea Verified 11/01/20 16:41 omeprazole magnesium Allergy Diarrhea Verified 11/01/20 16:41 [From Prilosec] pantoprazole sodium Allergy Diarrhea Verified 11/01/20 16:41 [From Protonix] Review of Systems ROS Statement: Those systems with pertinent positive or pertinent negative responses have been documented in the HPI. ROS Other: All systems not noted in ROS Statement are negative. Past Medical History Past Medical History: Asthma, Thyroid Disorder Additional Past Medical History / Comment(s): irregular heart beat, recent TMJ issues right side of jaw, shingles History of Any Multi-Drug Resistant Organisms: None Reported Past Surgical History: Section Additional Past Surgical History / Comment(s): tongue surgery Past Anesthesia/Blood Transfusion Reactions: No Reported Reaction Past Psychological History: No Psychological Hx Reported Smoking Status: Never smoker Past Alcohol Use History: None Reported Past Drug Use History: None Reported - Past Family History Father Family Medical History: Hypertension Mother Family Medical History: Diabetes Mellitus, Hypertension General Exam Limitations: no limitations General appearance: alert, in no apparent distress Head exam: Present: atraumatic, normocephalic, normal inspection Eye exam: Present: normal appearance, PERRL, EOMI. Absent: scleral icterus, co njunctival injection, periorbital swelling ENT exam: Present: normal exam, mucous membranes moist Neck exam: Present: normal inspection, full ROM. Absent: tenderness, meningismus, lymphadenopathy Respiratory exam: Present: normal lung sounds bilaterally. Absent: respiratory distress, wheezes, rales, rhonchi, stridor Cardiovascular Exam: Present: regular rate, normal rhythm, normal heart sounds. Absent: systolic murmur, diastolic murmur, rubs, gallop, clicks GI/Abdominal exam: Present: soft, normal bowel sounds. Absent: distended, tenderness, guarding, rebound, rigid Neurological exam: Present: alert Course Vital Signs 11/01/20 16:13 Temperature 98.3 F Pulse Rate 90 Respiratory 18 Rate Blood Pressure 112/68 O2 Sat by Pulse 97 Oximetry Medical Decision Making - Medical Decision Making Vitals are stable. Patient is well-appearing. Abdomen is nontender. She describes the bleeding as a very light spotting. CBC CMP unremarkable. Urinalysis unremarkable. Patient does have an A+ blood type. Ultrasound was obtained which showed no complicating process seen. Patient does have a single viable intrauterine with a gestational age of 6 weeks 4 days and a heart rate of 131. At this time patient can be discharged home to follow up with her [facility] Dr. Gomez with whom she is established. She will return for any worsening symptoms. - Lab Data Result diagrams: 11/01/20 16:38 11/01/20 16:38 Lab Results 11/01/20 11/01/20 11/01/20 Range/Units 16:30 16:38 16:38 WBC 9.3 (3.8-10.6) k/uL RBC 4.66 (3.80-5.40) m/uL Hgb 11.9 (11.4-16.0) gm/dL Hct 37.2 (34.0-46.0) % MCV 79.8 L (80.0-100.0) fL MCH 25.6 (25.0-35.0) pg MCHC 32.0 (31.0-37.0) g/dL RDW 17.2 H (11.5-15.5) % Plt Count 315 (150-450) k/uL MPV 6.7 Neutrophils % 75 % Lymphocytes % 16 % Monocytes % 5 % Eosinophils % 2 % Basophils % 0 % Neutrophils # 7.0 (1.3-7.7) k/uL Lymphocytes # 1.5 (1.0-4.8) k/uL Monocytes # 0.5 (0-1.0) k/uL Eosinophils # 0.2 (0-0.7) k/uL Basophils # 0.0 (0-0.2) k/uL Anisocytosis Slight Microcytosis Slight Sodium (137-145) mmol/L Potassium (3.5-5.1) mmol/L Chloride (98-107) mmol/L Carbon Dioxide (22-30) mmol/L Anion Gap mmol/L BUN (7-17) mg/dL Creatinine (0.52-1.04) mg/dL Est GFR (CKD-EPI)AfAm (>60 ml/min/1.73 sqM) Est GFR (CKD-EPI)NonAf (>60 ml/min/1.73 sqM) Glucose (74-99) mg/dL Calcium (8.4-10.2) mg/dL Total Bilirubin (0.2-1.3) mg/dL AST (14-36) U/L ALT (4-34) U/L Alkaline Phosphatase (38-126) U/L Total Protein (6.3-8.2) g/dL Albumin (3.5-5.0) g/dL Urine Color Yellow Urine Appearance Clear (Clear) Urine pH 5.5 (5.0-8.0) Ur Specific [place] 1.034 (1.001-1.035) Urine Protein Trace H (Negative) Urine Glucose (UA) Negative (Negative) Urine Ketones Negative (Negative) Urine Blood Large H (Negative) Urine Nitrite Negative (Negative) Urine Bilirubin Negative (Negative) Urine Urobilinogen <2.0 (<2.0) mg/dL Ur Leukocyte Esterase Trace H (Negative) Urine RBC 2 (0-5) /hpf Urine WBC 4 (0-5) /hpf Ur Squamous Epith Cells 2 (0-4) /hpf Urine Mucus Rare H (None) /hpf Blood Type A Positive Blood Type Recheck A Pos Bld Type Recheck Status No 11/01/20 Range/Units 16:38 WBC (3.8-10.6) k/uL RBC (3.80-5.40) m/uL Hgb (11.4-16.0) gm/dL Hct (34.0-46.0) % MCV (80.0-100.0) fL MCH (25.0-35.0) pg MCHC (31.0-37.0) g/dL RDW (11.5-15.5) % Plt Count (150-450) k/uL MPV Neutrophils % % Lymphocytes % % Monocytes % % Eosinophils % % Basophils % % Neutrophils # (1.3-7.7) k/uL Lymphocytes # (1.0-4.8) k/uL Monocytes # (0-1.0) k/uL Eosinophils # (0-0.7) k/uL Basophils # (0-0.2) k/uL Anisocytosis Microcytosis Sodium 137 (137-145) mmol/L Potassium 3.9 (3.5-5.1) mmol/L Chloride 103 (98-107) mmol/L Carbon Dioxide 24 (22-30) mmol/L Anion Gap 10 mmol/L BUN 14 (7-17) mg/dL Creatinine 0.67 (0.52-1.04) mg/dL Est GFR (CKD-EPI)AfAm >90 (>60 ml/min/1.73 sqM) Est GFR (CKD-EPI)NonAf >90 (>60 ml/min/1.73 sqM) Glucose 107 H (74-99) mg/dL Calcium 9.7 (8.4-10.2) mg/dL Total Bilirubin 0.4 (0.2-1.3) mg/dL AST 22 (14-36) U/L ALT 13 (4-34) U/L Alkaline Phosphatase 53 (38-126) U/L Total Protein 7.2 (6.3-8.2) g/dL Albumin 4.1 (3.5-5.0) g/dL Urine Color Urine Appearance (Clear) Urine pH (5.0-8.0) Ur Specific [place] (1.001-1.035) Urine Protein (Negative) Urine Glucose (UA) (Negative) Urine Ketones (Negative) Urine Blood (Negative) Urine Nitrite (Negative) Urine Bilirubin (Negative) Urine Urobilinogen (<2.0) mg/dL Ur Leukocyte Esterase (Negative) Urine RBC (0-5) /hpf Urine WBC (0-5) /hpf Ur Squamous Epith Cells (0-4) /hpf Urine Mucus (None) /hpf Blood Type Blood Type Recheck Bld Type Recheck Status Disposition Clinical Impression: Threatened miscarriage Disposition: HOME SELF-CARE Condition: Good Instructions (If sedation given, give patient instructions): Threatened Miscarriage (ED) Additional Instructions: Please follow up with your [facility] on Tuesday. If you develop any worsening symptoms return to the emergency room. These could include heavy bleeding such as soaking through 1 pad an hour, lightheadedness, or abdominal pain. In the meantime practice pelvic rest. Is patient prescribed a controlled substance at d/c from ED?: No Referrals: Antonino Branch MD [Primary Care Provider] - 1-2 days Paulo Gomez MD [STAFF PHYSICIAN] - 1-2 days Time of Disposition: 17:45
[2020-11-01 16:53] LABS: ALT 13 U/L (4-34); AST 22 U/L (14-36); African American GFR (CKD) >90 (>60 ml/min/1.73 sqM); Albumin 4.1 g/dL (3.5-5.0); Alkaline Phosphatase 53 U/L (38-126); Anion Gap 10 mmol/L; Blood Urea Nitrogen 14 mg/dL (7-17); Calcium 9.7 mg/dL (8.4-10.2); Carbon Dioxide 24 mmol/L (22-30); Chloride 103 mmol/L (98-107); Glucose 107 mg/dL (74-99); Non-African American GFR(CKD) >90 (>60 ml/min/1.73 sqM); Potassium 3.9 mmol/L (3.5-5.1); Sodium 137 mmol/L (137-145); Total Bilirubin 0.4 mg/dL (0.2-1.3); Total Protein 7.2 g/dL (6.3-8.2)
--- NOTE | 2020-11-01 17:19 | US ---
EXAMINATION TYPE: Transabdominal DATE OF EXAM: 11/01/2020 5:04 PM COMPARISON: NONE CLINICAL HISTORY: spotting. Pt states light vaginal spotting that started today EXAM PERFORMED: Transabdominal (TA) EXAM MEASUREMENTS: GESTATIONAL AGE / DATING Physician Established: Not yet established Dates by LMP: (6 weeks/3 days) EDC: 06/24/2021 Dates by First Scan: No previous this is first scan Dates by Current Scan for: (6 weeks/4 days) EDC: 06/23/2021 MATERNAL ANATOMY Uterus: 10.9 x 7.4 x 8.4 cm Right Ovary: 5.1 x 3.0 x 3.3 cm Left Ovary: 2.6 x 1.9 x 2.1 cm Post CDS / Adnexa: wnl Presence of free fluid: No Presence of corpus luteal cyst: Right Ovary= 3.1 x 2.3 x 2.6 cm Presence of subchorionic bleed: No GESTATION / SURVEY CRL: 0.7 cm (6 weeks/4 days) MSD: wnl Yolk Sac (normal less than 6mm): 2mm Heart Rate: 131 bpm Rhythm: Normal IUP: Viable IUP Date of LMP: 09/17/2020 Beta HcG (if available): Not available at this time Single, viable IUP/ No abnormality visualized at this time IMPRESSION: The ultrasound gestational age is 6 weeks and 4 days. No complicating process seen.
[2020-11-01 18:05] LABS: HCG,Quantitative Serum 90015.9 mIU/mL
== END 2020-11-01 18:04 | disposition home or self-care (01) ==
LOC: EC 16:12
DX: O20.0 Threatened abortion (principal); O99.511 Diseases of the respiratory system complicating pregnancy, first trimester; J45.909 Unspecified asthma, uncomplicated; Z3A.01 Less than 8 weeks gestation of pregnancy
CPT/HCPCS: 36415; 76801; 80053; 81001; 84702; 85025; 86900; 86901; 99284

== ENCOUNTER → 2020-11-04 | Outpatient (CLI) | payer BC | END | disposition home or self-care (01) | LOC: LABWHC1 13:35 | PROVIDERS: ATTEND Internal Medicine Endocrinology, Diabetes & Metabolism | DX: E03.8 Other specified hypothyroidism (principal) | CPT/HCPCS: 36415; 84702 ==

== ENCOUNTER → 2020-11-19 | Outpatient (CLI) | payer BC ==
[2020-11-19 20:44] LABS: Chol/HDL Ratio 2.47; LDL Cholesterol,Calculated 73.4 mg/dL (0.0-131.0); VLDL Calculation 14.6 mg/dL (5.00-40.00)
[2020-11-19 20:51] LABS: T4, Free (Free Thyroxine) 1.2 ng/dL (0.80-1.80)
[2020-11-19 21:06] LABS: Hemoglobin A1C 5.2 % (4.0-6.0)
== END | disposition home or self-care (01) ==
LOC: LABWHC1 11:49
PROVIDERS: ATTEND Internal Medicine Endocrinology, Diabetes & Metabolism
DX: E11.9 Type 2 diabetes mellitus without complications (principal)
CPT/HCPCS: 36415; 80061; 82672; 83036; 84439; 84443

== ENCOUNTER → 2021-01-12 | Outpatient (CLI) | payer BC ==
[2021-01-12 23:24] LABS: Hemoglobin A1C 5.6 % (4.0-6.0)
== END | disposition home or self-care (01) ==
LOC: LABWHC1 15:59
PROVIDERS: ATTEND Internal Medicine Endocrinology, Diabetes & Metabolism
DX: E11.9 Type 2 diabetes mellitus without complications (principal); E03.8 Other specified hypothyroidism
CPT/HCPCS: 36415; 83036; 84439; 84443

== ENCOUNTER 2021-01-23 09:21 | Outpatient (CLI) | payer BC ==
--- NOTE | 2021-01-23 11:05 | US ---
EXAMINATION TYPE: US venous doppler duplex LE RT DATE OF EXAM: 01/23/2021 9:32 AM COMPARISON: US CLINICAL HISTORY: pain and swelling . Pain and swelling. No hx of DVT. Patient does not take blood th inners. SIDE PERFORMED: Right TECHNIQUE: The lower extremity deep venous system is examined utilizing real time linear array sonog robe with graded compression, doppler sonography and color-flow sonography. VESSELS IMAGED: Common Femoral Vein Deep Femoral Vein Greater Saphenous Vein * Femoral Vein Popliteal Vein Small Saphenous Vein * Proximal Calf Veins (* superficial vessels) Right Leg: No evidence of DVT in veins imaged at this time. IMPRESSION: No evidence of DVT
--- NOTE | 2021-01-23 17:26 | P.MSEPDOC ---
Presenting Problems - Arrival Data Date of Arrival on Unit: 01/23/21 Time of Arrival on Unit: 09:21 Mode of Transport: Ambulatory - Complaint OB-Reason for Admission/Chief Complaint: Other Comment: pain and swelling in right lower ext, written order from office for venous doppler Medical History - Gestational Age Gestational Age by NABIL (wks/days): 18 Weeks and 0 Days Review of Systems - Review of Systems Constitutional: No problems Breast: No problems ENT: No problems Cardiovascular: No problems Respiratory: No problems Gastrointestinal: No problems Genitourinary: No problems Musculoskeletal: No problems Neurological: No problems Skin: No problems Maternal Triage Index - Scheduled/Requesting Priority 5 Scheduled/Requesting Priority 5: Yes Criteria Met for Priority 5: written order from office for venous doppler Disposition - Disposition OB Disposition: Discharge to home Discharge Date: 01/23/21 Discharge Time: 11:10 I agree with the RN Medical Screening Exam: Yes Case reviewed; plan agreed upon as documented in EMR&OBIX.: Yes Diagnosis: RELATED CONDITIONS, UNSPECIFIED, THIRD TRIMESTER (Patient presented for evaluation of left lower leg pain and swelling. Venous Doppler shows no evidence of DVT. Patient encouraged to increase fluids, void salts, and elevate her extremity for symptom relief)
== END 2021-01-23 11:10 | disposition home or self-care (01) ==
LOC: FBPOP 09:21
PROVIDERS: ATTEND Obstetrics & Gynecology
DX: O26.892 Other specified pregnancy related conditions, second trimester (principal); M79.89 Other specified soft tissue disorders; M79.604 Pain in right leg; Z3A.18 18 weeks gestation of pregnancy; Z88.8 Allergy status to other drugs, medicaments and biological substances

== ENCOUNTER → 2021-02-20 | Outpatient (CLI) | payer BC ==
[2021-02-20 18:50] LABS: T4, Free (Free Thyroxine) 0.98 ng/dL (0.800-1.800)
== END | disposition home or self-care (01) ==
LOC: LABWHC1 09:08
PROVIDERS: ATTEND Internal Medicine Endocrinology, Diabetes & Metabolism
DX: E11.9 Type 2 diabetes mellitus without complications (principal); E03.8 Other specified hypothyroidism
CPT/HCPCS: 36415; 83036; 84439; 84443

== ENCOUNTER → 2021-04-08 | Outpatient (CLI) | payer BC ==
[2021-04-09 03:34] LABS: T4, Free (Free Thyroxine) 0.94 ng/dL (0.800-1.800)
== END | disposition home or self-care (01) ==
LOC: LABWHC1 16:15
PROVIDERS: ATTEND Internal Medicine Endocrinology, Diabetes & Metabolism
DX: E03.8 Other specified hypothyroidism (principal)
CPT/HCPCS: 36415; 84439; 84443; 84480

== ENCOUNTER → 2021-04-10 | Outpatient (CLI) | payer BC ==
[2021-04-11 02:58] LABS: ALT 12 U/L (8-44); AST 14 U/L (13-35)
== END | disposition home or self-care (01) ==
LOC: LABWHC1 16:17
PROVIDERS: ATTEND Obstetrics & Gynecology
DX: K83.1 Obstruction of bile duct (principal)
CPT/HCPCS: 36415; 82239; 84450; 84460

== ENCOUNTER 2021-05-15 16:20 | Outpatient (CLI) | payer OTHER, BC ==
--- NOTE | 2021-05-15 18:44 | US ---
EXAMINATION TYPE: US OB BPP wo non-stress DATE OF EXAM: 05/15/2021 COMPARISON: NONE CLINICAL HISTORY: non reactive NST. EXAM PERFORMED: Transabdominal (TA) BPP PARAMETERS: PRESENTATION: Vertex HEART RATE: 147 bpm RHYTHM: Normal DENISHA: 13.3 DIAPHRAGM IMAGED: yes BPP SCORIN. Breathin (1 episode of breathing of 30 second duration in 30 minutes of scanning time) 2. Movement: 2 (at least 3 discrete body movements in 30 minutes) 3. Tone: 0 (1 episode of active flexion/extension of limb) 4. DENISHA: 2 (DENISHA index > 5cm) TOTAL SCORE: 6 / 8 Impression The biophysical profile score 6 there is no flexion and extension of the limbs observed during the exam.
[2021-05-15 18:55] VITALS: BP 127/79; PULSE 92; RESP 18; TEMP 97.9
--- NOTE | 2021-05-16 08:53 | P.MSEPDOC ---
Presenting Problems - Arrival Data Date of Arrival on Unit: 05/15/21 Time of Arrival on Unit: 16:20 Mode of Transport: Ambulatory - Complaint OB-Reason for Admission/Chief Complaint: NST Medical History - Information : 2 Para: 1 Term: 1 : 0 Abortions: Spontaneous or Elective: 0 Number of Living Children: 1 - Gestational Age Gestational Age by NABIL (wks/days): 35 Weeks and 2 Days - History Complications: GDM Review of Systems - Review of Systems Constitutional: No problems Breast: No problems ENT: No problems Cardiovascular: No problems Respiratory: No problems Gastrointestinal: No problems Genitourinary: No problems Musculoskeletal: No problems Neurological: No problems Skin: No problems Vital Signs - Temperature Temperature: 97.9 F Temperature Source: Oral - Pulse Right Pulse Oximetery Pulse Rate: 92 Pulse Assessment Method: Pulse Oximetry - Respirations Respiratory Rate: 18 Oxygen Delivery Method: Room Air O2 Sat by Pulse Oximetry: 100 - Blood Pressure Right Arm Blood Pressure: 127/79 Blood Pressure Mean: 95 Blood Pressure Source: Automatic Cuff Medical Screen Scoring - Assessment - Baby A Baseline FHR: 135 Heart Rate - NICHD Category: Category I (Normal) NST: Reactive Physician Notification - Physician Notified Physician Notified Date: 05/15/21 Physician Notified Time: 17:29 Physician: Roselia Ambrose Order Received: Yes - Notification Comment Comment: Dr Ambrose called and notified of NST origianlly not reactive, BPP ordered, while waiting for BPP, FHR became reactive, BPP 6/8 for tone. Order for discharge with instructions for pt to continue kick counts and to return to office tuesday for NST as planned unless concerns. Maternal Triage Index - Maternal Triage Index Presenting for scheduled procedure w/no complaint: Yes - Scheduled/Requesting Priority 5 Scheduled/Requesting Priority 5: Yes Criteria Met for Priority 5: NST Disposition - Disposition OB Disposition: Discharge to home Discharge Date: 05/15/21 Discharge Time: 18:50 I agree with the RN Medical Screening Exam: Yes Case reviewed; plan agreed upon as documented in EMR&OBIX.: Yes Diagnosis: GESTATIONAL DIABETES MELLITUS IN , UNSP CONTROL
== END 2021-05-15 18:50 | disposition home or self-care (01) ==
LOC: FBPOP 16:20
PROVIDERS: ATTEND Obstetrics & Gynecology
DX: O24.419 Gestational diabetes mellitus in pregnancy, unspecified control (principal); Z3A.35 35 weeks gestation of pregnancy; Z88.8 Allergy status to other drugs, medicaments and biological substances; Z88.1 Allergy status to other antibiotic agents
CPT/HCPCS: 59025; 76819

== ENCOUNTER → 2021-07-21 | Outpatient (CLI) | payer BC ==
[2021-07-22 00:44] LABS: T4, Free (Free Thyroxine) 1.48 ng/dL (0.800-1.800)
== END | disposition home or self-care (01) ==
LOC: LABWHC1 13:45
PROVIDERS: ATTEND Internal Medicine Endocrinology, Diabetes & Metabolism
DX: E11.9 Type 2 diabetes mellitus without complications (principal); E03.8 Other specified hypothyroidism
CPT/HCPCS: 36415; 83036; 84439; 84443

== ENCOUNTER → 2021-09-04 | Outpatient (CLI) | payer BC ==
--- NOTE | 2021-09-04 15:43 | PE ---
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 TECHNIQUE: Following the intravenous administration of 9.00 mCi of F-18 FDG, whole body images are p erformed from the skull base to the midthigh. Images are reviewed on the computer in the coronal, ax ial, and sagittal planes. Reconstructed rotating images are created on independent workstation and r eviewed on the computer. A localization and attenuation correction CT is performed in conjunction w ith the PET scan. Blood glucose level equals 91. SCAN: Initial Scan FINDINGS: Mean SUV mediastinum: 0.93 Mean SUV liver: 1.73 SKULL BASE AND NECK: Symmetric metabolic uptake intraconal region of the orbits is identified. Max S UV is 6.42 on the right axial image 16 and 6.26 on the left same image. No abnormal hypermetabolic up take near the globes or anterior tissues. No abnormal hypermetabolic uptake remainder of the neck. CHEST, MEDIASTINUM, AND HILAR REGION: No abnormal hypermetabolic masses or adenopathy in the thorax. ABDOMEN AND PELVIS: No definitive abnormal hypermetabolic uptake in the abdomen or pelvis. Normal exc retion is present including suspected along course of the right ureter with hypermetabolic focus axia l measures 205 and no corresponding enlarged lymph node clearly seen at this level. OSSEOUS STRUCTURES: No abnormal hypermetabolic uptake. OTHER CT: Patient has little intra-abdominal fat. IMPRESSION: Possible symmetric abnormal uptake versus volume averaging from adjacent brain in the pos terior aspect bilateral orbits. No suspicious hypermetabolic uptake or adenopathy to suggest neoplast ic involvement otherwise.
== END | disposition home or self-care (01) ==
LOC: RADXRMAIN 13:07
PROVIDERS: ATTEND Internal Medicine Hematology & Oncology
DX: C85.18 Unspecified B-cell lymphoma, lymph nodes of multiple sites (principal)
CPT/HCPCS: 78815; A9552

== ENCOUNTER → 2021-09-18 | Outpatient (CLI) | payer BC ==
[2021-09-18 23:28] LABS: T4, Free (Free Thyroxine) 1.28 ng/dL (0.800-1.800)
== END | disposition home or self-care (01) ==
LOC: LABWHC1 12:20
PROVIDERS: ATTEND Internal Medicine Endocrinology, Diabetes & Metabolism
DX: E11.9 Type 2 diabetes mellitus without complications (principal)
CPT/HCPCS: 36415; 84439; 84443; 84480

== ENCOUNTER → 2021-09-18 | Outpatient (CLI) | payer BC ==
--- NOTE | 2021-09-19 03:22 | MR ---
EXAMINATION TYPE: MR brain/orbits wo/w con DATE OF EXAM: 09/18/2021 COMPARISON: None HISTORY: Blurred vision, B cell lymphoma. CONTRAST: Standard multiplanar, multisequence MRI departmental protocol images were obtained without contrast a nd with 6 mL intravenous Gadavist gadolinium contrast. Multiplanar multi echo imaging of the brain performed without and with IV contrast. Diffusion images show no sign of an acute infarct. Ventricles have fairly normal size. There is no ma ss effect or midline shift. No evidence of intracranial hemorrhage. No sign of any significant cerebr al edema. Brainstem is intact. Corpus callosum is intact. There is no evidence of orbital mass. Retro -orbital soft tissues appear intact. Sella turcica appears normal. Optic chiasm is normal. Pituitary stalk deviates slightly to the right side. No definite sellar mass. There is fairly uniform enhanceme nt of the pituitary gland. There is no pathologic enhancement of the brain. There is normal enhanceme nt of the venous sinuses. Optic nerves appear normal. IMPRESSION: Negative MR scan of the brain. No focal orbital abnormality.
== END | disposition home or self-care (01) ==
LOC: RADMRIMAIN 17:05
PROVIDERS: ATTEND Internal Medicine Hematology & Oncology
DX: H53.8 Other visual disturbances (principal); C83.31 Diffuse large B-cell lymphoma, lymph nodes of head, face, and neck
CPT/HCPCS: 70543; 70553; A9585

== ENCOUNTER → 2022-04-06 | Outpatient (CLI) | payer BC ==
[2022-04-06 14:53] LABS: T4, Free (Free Thyroxine) 1.24 ng/dL (0.800-1.800)
== END | disposition home or self-care (01) ==
LOC: LABWHC1 07:55
PROVIDERS: ATTEND Internal Medicine Endocrinology, Diabetes & Metabolism
DX: E11.9 Type 2 diabetes mellitus without complications (principal)
CPT/HCPCS: 36415; 84439; 84443; 84480

== ENCOUNTER → 2022-05-27 | Outpatient (CLI) | payer BC ==
--- NOTE | 2022-05-29 10:00 | CT ---
EXAMINATION TYPE: CT angio thor/abd pel aorta CT DLP: 584 mGycm, Automated exposure control for dose reduction was used. DATE OF EXAM: 05/27/2022 4:44 PM COMPARISON: PET/CT 09/04/2021. 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 3-D reformats and maximum intensity projection fo rmat were performed on a separate workstation. Contrast used: 100 cc of Isovue-370 Oral contrast used: without Oral Contrast FINDINGS: ARTERIAL VASCULATURE: The thoracic aorta is normal in course and caliber. There is no evidence of aor tic dissection, aneurysm or acute aortic injury. Great arch vessels patent and normal in course and c aliber. PULMONARY ARTERIAL VASCULATURE: Normal caliber. No evidence of filling defect to suggest pulmonary em bolus. VENOUS SYSTEM: Unremarkable. Lungs/pleura: The lung parenchyma appears unremarkable. Heart: Within normal limits. Mediastinum: No gross evidence of adenopathy. Mild soft tissue in anterior mediastinum which was not FDG avid on prior PET/CT scan 09/04/2021. Likely representing thymus tissue. Lower Neck: No significant findings. Abdomen: Liver: 1Multiple arterial phase enhancing lesions are seen within the liver, examples include: * Left hepatic lobe segment 2 measuring up to 2.7 x 2.7 cm and 1.0 cm. (Series 6 image 131 and 132) small satellite lesion next to the larger one lesion more laterally measuring 8 mm. * Left anterior capsular region and segment 3 measuring 6 mm (image 166). * 6 mm lesion in the right hepatic lobe image 178, and caudate lobe image 134 Gallbladder and Bile ducts: Unremarkable. Pancreas: Unremarkable. Spleen: Unremarkable. Adrenal glands: Unremarkable. Kidneys and Ureters: Unremarkable. No hydronephrosis. Bladder: Unremarkable. Reproductive: Unremarkable. Stomach and Bowel: Unremarkable. No evidence of bowel obstruction. Peritoneum: No evidence of pneumoperitoneum, free fluid, or adenopathy. Musculoskeletal: The osseous structures appear intact. Lymph nodes: No evidence of lymphadenopathy. Abdominal wall/soft tissues: Unremarkable. IMPRESSION: 1. No evidence for thoracic aortic dissection. 2. No acute abnormality within the chest wall to explain the patient's chronic rib pain. Ribs have a normal appearance, no evidence of fracture. 3. No evidence of lymphadenopathy. 4. Scattered hepatic arterial phase hyperenhancing lesions which are indeterminate. There was no abno rmal FDG activity within this areas on prior PET 09/04/2021. These can be further assessed with MRI li anali mass protocol with IV contrast.
== END | disposition home or self-care (01) ==
LOC: RADCTMAIN 15:41
PROVIDERS: ATTEND Thoracic Surgery (Cardiothoracic Vascular Surgery)
DX: C85.12 Unspecified B-cell lymphoma, intrathoracic lymph nodes (principal); K76.89 Other specified diseases of liver
CPT/HCPCS: 71275; 74174; Q9967

== ENCOUNTER → 2022-06-04 | Outpatient (CLI) | payer BC ==
[2022-06-04 23:26] LABS: ALT 15 U/L (8-44); AST 20 U/L (13-35); African American GFR (CKD) 97.4 (60.0-200.0); Albumin 4.4 g/dL (3.8-4.9); Albumin/Globulin Ratio 1.47 (1.60-3.17); Alkaline Phosphatase 58 U/L (41-126); BUN/Creat Ratio 17.22 Ratio (12.00-20.00); Blood Urea Nitrogen 15.5 mg/dL (9.0-27.0); Calcium 9.3 mg/dL (8.7-10.3); Carbon Dioxide 24.9 mmol/L (20.0-27.5); Chloride 103 mmol/L (96-109); Chol/HDL Ratio 2.43 Ratio; Glucose 89 mg/dL (70-110); LDL Cholesterol,Calculated 77.5 mg/dL (0.0-131.0); Potassium 3.7 mmol/L (3.5-5.5); Sodium 139 mmol/L (135-145); Total Protein 7.4 g/dL (6.2-8.2); VLDL Calculation 8.46 mg/dL (5.00-40.00)
== END | disposition home or self-care (01) ==
LOC: LABWHC1 16:30
PROVIDERS: ATTEND Internal Medicine Endocrinology, Diabetes & Metabolism
DX: E03.8 Other specified hypothyroidism (principal); E11.65 Type 2 diabetes mellitus with hyperglycemia
CPT/HCPCS: 36415; 80053; 80061; 83036; 84443